=== PATIENT | female | born 1990 | race Caucasian/White ===

== ENCOUNTER 2022-01-25 22:24 | Emergency (ER) | payer SELFPAY ==
[~2022-01-25] VITALS: Ht 162.6 cm; Wt 77.1 kg
[2022-01-25] MEDS ORDERED: ACETAMINOPHEN 325 MG TAB PO ONE (22:45)
[2022-01-25] MEDS ORDERED: KETOROLAC TROMETHAMINE 30 MG/ML VIAL IM STA (22:55)
[2022-01-25] MEDS ORDERED: ACETAMINOPHEN 325 MG TAB ONE (22:56)
[2022-01-25] MEDS ORDERED: KETOROLAC TROMETHAMINE 30 MG/ML VIAL ONE (22:58)
[2022-01-26 00:22] LABS: BACTERIA,URINE FEW /HPF; CLARITY,URINE SL CLOUDY (CLEAR); COLOR,URINE YELLOW (YELLOW); EPITHELIAL CELLS,URINE FEW /LPF; KETONES,URINE NEGATIVE (NEGATIVE); LEUKOCYTE ESTERASE ,URINE NEGATIVE (NEGATIVE); NITRITE,URINE NEGATIVE (NEGATIVE); PROTEIN,URINE DIPSTICK NEGATIVE (NEGATIVE); RBC,URINE 0-5 /HPF (0-5); URINE UROBILINOGEN 0.2 mg/dL (0.2 - 1); WBC,URINE (MAN) 0-5 /HPF (0-5)
[2022-01-26 00:46] VITALS: BP 121/84
== END 2022-01-26 00:43 | disposition home or self-care (01) ==
LOC: ER 22:43
DX: R50.9 Fever, unspecified (principal); B34.9 Viral infection, unspecified; R53.1 Weakness; Z20.822 Contact with and (suspected) exposure to COVID-19
CPT/HCPCS: 81001; 99284; J1885; U0002